=== PATIENT | male | born 1990 | race Caucasian/White ===

== ENCOUNTER 2021-08-27 12:51 | Emergency (ER) | payer BC ==
[2021-08-27 13:42] LABS: HEMOGLOBIN 16.7 gm/dl (14.0-17.5); RED BLOOD COUNT 5.41 M/UL (4.20-5.50)
[2021-08-27 14:03] LABS: BUN/CREATININE RATIO 11 (0-10)
[2021-08-27] MEDS ORDERED: TORADOL 10 MG T10 MG PO (17:33)
[2021-08-27] MEDS ORDERED: CYCLOBENZAPRINE5 MG PO (17:33)
== END 2021-08-27 20:08 | disposition home or self-care (01) ==
LOC: ER1 12:51
PROVIDERS: Emergency Medicine
DX: R07.89 Other chest pain (principal); Z20.822 Contact with and (suspected) exposure to COVID-19; M54.6 Pain in thoracic spine; M54.2 Cervicalgia; Z88.8 Allergy status to other drugs, medicaments and biological substances
CPT/HCPCS: 71045; 71275; 80053; 81001; 82550; 82553; 83690; 84439; 84443; 84484; 85025; 85379; 93005; 96374; 99284; J1885; Q9967; U0002

== ENCOUNTER 2021-12-22 10:51 | Emergency (ER) | payer BC ==
[~2021-12-22 10:51] MED LIST: CYCLOBENZAPRINE5 MG PO; TORADOL 10 MG T10 MG PO
[2021-12-22 12:20] LABS: HEMOGLOBIN 17.5 gm/dl (14.0-17.5); RED BLOOD COUNT 5.81 M/UL (4.20-5.50); WHITE BLOOD COUNT 19.7 K/UL (4.5-11.0)
[2021-12-22 12:42] LABS: BUN/CREATININE RATIO 18 (0-10)
[2021-12-22] MEDS ORDERED: ROBAXIN 750 MG750 MG PO (14:59)
[2021-12-22] MEDS ORDERED: ZOFRAN ODT 4 MG4 MG PO (14:59)
== END 2021-12-22 15:22 | disposition home or self-care (01) ==
LOC: ER1 10:51
PROVIDERS: Physician Assistant
DX: A08.4 Viral intestinal infection, unspecified (principal); D72.829 Elevated white blood cell count, unspecified; Z20.822 Contact with and (suspected) exposure to COVID-19; Z88.5 Allergy status to narcotic agent
CPT/HCPCS: 0241U; 80048; 81001; 85027; 96374; 96375; 99284; J1885; J2405; Q9967